=== PATIENT | male | born 1970 | race Caucasian/White ===

== ENCOUNTER 2017-04-27 06:34 | Emergency (ER) | payer OTHER ==
--- NOTE | 2017-04-27 08:42 | ER Document Report ---
ED GI/ - General Mode of Arrival: Ambulatory Information source: Patient TRAVEL OUTSIDE OF THE [place] IN LAST 30 DAYS: No <GUSTAVO CELAYA - Last Filed: 04/27/17 08:37> <LUIGI GARCIA - Last Filed: 04/27/17 09:57> - General Chief Complaint: Back Pain Stated Complaint: BACKPAIN Time Seen by Provider: 04/27/17 08:11 Notes: Patient is a 47-year-old male that presents to the emergency department today with complaints of left sided flank pain. Patient complains of "pressure" and last night around 1999 a stabbing pain in his left flank. Patient has been having the symptoms off and on for a week. Patient was seen by his PCP 2 days ago and was started on nausea medication and a laxative secondary to questionable constipation. Patient states he was unable to get this prescription filled so he put prunes in a spray blender and he drank them which moved his bowels appropriately. Patient states he was told he had hematuria and proteinuria at his visit to his PCP on tuesday. Patient denies a history of kidney stones. Patient does mention that he has had testicular pain and abdominal pain off and on since these symptoms started. (GUSTAVO CELAYA) Past Medical History - General Information source: Patient - Social History Smoking Status: Current Every Day Smoker Cigarette use (# per day): Yes Frequency of alcohol use: Heavy - x4-5 beers nightly Drug Abuse: None Lives with: Family Family History: Reviewed & Not Pertinent Patient has suicidal ideation: No Patient has homicidal ideation: No - Past Medical History Cardiac Medical History: Reports: Hx Hypertension Surgical Hx: Negative <GUSTAVO CELAYA - Last Filed: 04/27/17 08:37> Review of Systems - Review of Systems Constitutional: No symptoms reported EENT: No symptoms reported Cardiovascular: No symptoms reported Respiratory: No symptoms reported Gastrointestinal: No symptoms reported Genitourinary: See HPI, Flank pain - left Male Genitourinary: No symptoms reported Musculoskeletal: No symptoms reported Skin: No symptoms reported Hematologic/Lymphatic: No symptoms reported Neurological/Psychological: No symptoms reported -: Yes All other systems reviewed and negative <GUSTAVO CELAYA - Last Filed: 04/27/17 08:37> Physical Exam <GUSTAVO CELAYA - Last Filed: 04/27/17 08:37> <LUIGI GARCIA - Last Filed: 04/27/17 09:57> - Vital signs Vitals: Temp Pulse Resp BP Pulse Ox 97.5 F 78 16 174/101 H 98 04/27/17 06:59 04/27/17 06:59 04/27/17 06:59 04/27/17 06:59 04/27/17 06:59 - Notes Notes: Physical Exam: General: Alert, appears uncomfortable. HEENT: Normocephalic. Atraumatic. PERRL. Extraocular movements intact. Oropharynx clear. Neck: Supple. Non-tender. Respiratory: No respiratory distress. Clear and equal breath sounds bilaterally. Cardiovascular: Regular rate and rhythm. Abdominal: Normal Inspection. Non-tender. No distension. Normal Bowel Sounds. Back: Non-tender. Left CVA tenderness with percussion. Extremities: Moves all four extremities. Upper extremities: Normal inspection. Normal ROM. Lower extremities: Normal inspection. No edema. Normal ROM. Neurological: Normal cognition. AAOx4. Normal speech. Psychological: Normal affect. Normal Mood. Skin: Warm. Dry. Normal color. (GUSTAVO CELAYA) Course - Diagnostic Test Radiology reviewed: Image reviewed, Reports reviewed - Renal stone protocol CT scan suggests a recently passed stone on the left. There is some hydronephrosis and some stranding. There is no stone seen. The patient is not on any medications that would increase her risk of protein stones and no reason to suspect uric acid stones. <LUIGI GARCIA - Last Filed: 04/27/17 09:57> - Vital Signs Vital signs: Temp Pulse Resp BP Pulse Ox 97.5 F 78 16 174/101 H 98 04/27/17 06:59 04/27/17 06:59 04/27/17 06:59 04/27/17 06:59 04/27/17 06:59 - Laboratory Laboratory results interpreted by me: 04/27/17 08:40 Urine Protein >=500 H Urine Blood SMALL H Discharge <GUSTAVO CELAYA - Last Filed: 04/27/17 08:37> <LUIGI GARCIA - Last Filed: 04/27/17 09:57> - Discharge Clinical Impression: Left flank pain Hematuria Qualifiers: Hematuria type: other microscopic Qualified Code(s): R31.29 - Other microscopic hematuria; R31.2 - Other microscopic hematuria Proteinuria Qualifiers: Proteinuria type: unspecified Qualified Code(s): R80.9 - Proteinuria, unspecified Condition: Stable Disposition: HOME, SELF-CARE Additional Instructions: Kidney Stone: You MOST LIKELY are passing or have passed a kidney stone. These stones are usually due to increased calcium or uric acid concentrations in your urine. Stones within the kidney itself are not painful. The pain occurs as the stone leaves the kidney to pass down the long tube, called the ureter, leading to the bladder. If the stone is small, it will usually pass by itself. Most patients can pass the stone at home. You will usually receive medications for pain, nausea or vomiting, and sometimes a medication to assist in passing the kidney stone. However, if the pain is very severe or if vomiting prevents you from taking oral pain medications, you may need to return for further treatment. Drink three or four quarts of fluids per day. You will be given pain medication (if needed) and urine strainers. Strain all your urine to see if the stone passes. If your doctor has asked you to bring the stone in for analysis, return with the stone once it has passed. Return if pain or vomiting become severe, if you develop a high fever, if you are unable to pass your urine, or if other unusual symptoms occur. TAKE THE PAIN MEDICATION IF NEEDED. DRINK PLENTY OF FLUIDS THROUGHOUT THE DAY. FOLLOW UP WITH YOUR DOCTOR NEXT WEEK TO RECHECK THE URINE FOR BLOOD AND PROTEIN. Prescriptions: Oxycodone HCl/Acetaminophen [Percocet 5-325 mg Tablet] 1 tab PO ASDIR PRN #15 tablet PRN Reason: Referrals: JALEN GORDON PA-C [Primary Care Provider] - Follow up in 1 week Linsey[place] Attestation: 04/27/17 09:33 I personally performed the services described in the documentation, reviewed and edited the documentation which was dictated to the scribe in my presence, and it accurately records my words and actions. (LUIGI GARCIA) Scribe Documentation - Scribe Written by Milady:: Milady Byrnes, 04/27/2017 [id number] acting as scribe for :: Nicko <GUSTAVO CELAYA - Last Filed: 04/27/17 08:37>
[2017-04-27 09:08] LABS: APPEARANCE,URINE SLIGHTLY-CLOUDY; BILIRUBIN,URINE NEGATIVE (NEGATIVE); GLUCOSE, URINE NEGATIVE (NEGATIVE); KETONES,URINE NEGATIVE (NEGATIVE); LEUKOCYTE ESTERASE,URINE NEGATIVE (NEGATIVE); NITRITE,URINE NEGATIVE (NEGATIVE); PROTEIN,URINE >=500 mg/dL (NEGATIVE); URINE SPECIFIC GRAVITY 1.031; UROBILINOGEN,URINE NEGATIVE mg/dL (<2.0)
--- NOTE | 2017-04-27 09:55 | RADIOLOGY REPORT (SQ) ---
EXAM DESCRIPTION: CT LTD RENAL STONE PROTOCOL ON COMPLETED DATE/TIME: 04/27/2017 8:52 am REASON FOR STUDY: hematuria, L flank pain COMPARISON: None. TECHNIQUE: CT scan of the abdomen and pelvis performed without intravenous or oral contrast. Images reviewed with lung, soft tissue, and bone windows. Reconstructed coronal and sagittal MPR images revi ewed. All images stored on PACS. All CT scanners at this facility use dose modulation, iterative reconstruction, and/or weight based d osing when appropriate to reduce radiation dose to as low as reasonably achievable (ALARA). [facility]: Dose Right [facility]: CareDose [facility]: Dose Right [facility]: Teradose 4D [facility]: Smart myaNUMBER RADIATION DOSE: CT Rad equipment meets quality standard of care and radiation dose reduction techniq ues were employed. CTDIvol: 7.2 mGy. DLP: 405 mGy-cm.mGy. LIMITATIONS: None. FINDINGS: On the left side, there is mild perinephric stranding in the fat around the left kidney. Very mild left hydronephrosis and hydroureter is seen down to the left ureterovesical junction. No r adiopaque ureteral or renal stones. No left renal cysts or masses. Patient may have passed a kidney stone recently. Protein stone is also possible. These findings can be seen in pyelonephritis. Lef t renal vein thrombosis is possible but considered less likely. These findings were discussed with Renea Maharaj in the emergency room. LOWER CHEST: No significant findings. No nodules or infiltrates. NON-CONTRASTED LIVER, SPLEEN, ADRENALS: Evaluation limited by lack of IV contrast. No identified sign ificant masses. PANCREAS: No masses. No peripancreatic inflammatory changes. GALLBLADDER: No identified stones by CT criteria. No inflammatory changes to suggest cholecystitis. RIGHT KIDNEY AND URETER: No suspicious masses. Assessment limited by lack of IV contrast. No signif icant calcifications. No hydronephrosis or hydroureter. LEFT KIDNEY AND URETER: As above AORTA AND RETROPERITONEUM: No aneurysm. No retroperitoneal masses or adenopathy. BOWEL AND PERITONEAL CAVITY: No obvious masses or inflammatory changes. No free fluid. APPENDIX: Normal. PELVIS, BLADDER, AND ABDOMINAL WALL:No abnormal masses. No free fluid. Bladder normal. BONES: No significant findings. OTHER: No other significant finding. IMPRESSION: Mild left perinephric stranding with mild left hydronephrosis and hydroureter. No radio paque stone identified. Findings discussed with the emergency room attending physician COMMENT: Quality ID # [id number]: Final reports with documentation of one or more dose reduction techniques (e.g., Automated exposure control, adjustment of the mA and/or kV according to patient size, use of iterative reconstruction technique) TECHNICAL DOCUMENTATION: JOB ID: [id number] [employer]- All Rights Reserved
[2017-04-27 10:14] VITALS: BP 143/94
== END 2017-04-27 10:13 | disposition home or self-care (01) ==
LOC: ER 06:34
DX: R31.29 Other microscopic hematuria (principal); R80.9 Proteinuria, unspecified; M54.9 Dorsalgia, unspecified; R10.9 Unspecified abdominal pain
CPT/HCPCS: 76380; 81001; 99284